=== PATIENT | female | born 1935 | race Asian ===

== ENCOUNTER 2019-06-20 14:37 | Emergency (ER) | payer MEDICARE, OTHER ==
[~2019-06-20] VITALS: Ht 152.4 cm; Wt 76.7 kg
[2019-06-20] MEDS ORDERED: COUMADIN1 MG ORAL (14:44)
[2019-06-20] MEDS ORDERED: AMLODIPINE BES2.5 MG ORAL (14:44)
[2019-06-20] MEDS ORDERED: FUROSEMIDE20 M1 ORAL (14:44)
[2019-06-20] MEDS ORDERED: Morphine Sulfate 2mg/ml Inj(IV/IM USE ONLY) IVP ONE (14:45)
[2019-06-20 14:50] VITALS: BP 136/63
--- NOTE | 2019-06-20 14:50 | NUR ---
ED Nurse Note: PT FROM HOME AND WAS BROUGHT IN BY RA 68 DUE TO GENERALIZED WEAKNESS. PER PT, SHE FELL IN A PARKING LOT YESTERDAY AND NOW C/O LOWER BACK AND BILATERAL LEG PAIN. ALSO NOTED MULTIPLE BRUISING ON UPPER EXTREMITIES AND BILATERAL BREASTS. PT IS CURRENTLY TAKING XARELTO FOR HER HEART. AAO X4, FOLLOWS COMMANDS AND UNABLE TO MOVE HER LEGS. NOTED BLE EDEMA.
--- NOTE | 2019-06-20 15:03 | Emergency Room Report ---
History of Present Illness General Chief Complaint: Generalized Weakness Source: Patient, EMS Present Illness HPI The patient fell yesterday. She had pain in her lower back and right hip. She was able to walk home but with severe pain. During the night she needed to go to the bathroom and slipped onto her floor and was unable to get up because of pain and weakness. She denies loss of consciousness. Patient is taking Coumadin for atrial fibrillation. She denies chest pain or shortness of breath. She feels thirsty at this time and has not had anything to drink or eat this morning. Non syncopal. But felt dizzy while sitting before the fall. No chest pain. Allergies: Coded Allergies: UNABLE TO ASSESS (Unverified , 06/20/19) Patient History Past Medical History: see triage record Past Surgical History: CABG Social History: Denies: smoking, alcohol use Social History Narrative Born in [place], retired from [employer] business, lives at home Reviewed Nursing Documentation: PMH: Agreed; PSxH: Agreed Nursing Documentation-PMH Past Medical History: No History, Except For Hx Cardiac Problems: Yes - aortic valve replacement Hx Hypertension: Yes Review of Systems All Other Systems: negative except mentioned in HPI Physical Exam Vital Signs Date Time Temp Pulse Resp B/P (MAP) Pulse Ox O2 Delivery O2 Flow Rate FiO2 06/20/19 14:40 97.9 96 16 164/57 (92) 99 Room Air Sp02 EP Interpretation: reviewed, normal General Appearance: well appearing, no apparent distress, GCS 15 Head: normocephalic Eyes: bilateral eye normal inspection, bilateral eye PERRL, bilateral eye EOMI ENT: dry mucus membranes Neck: supple Respiratory: lungs clear, normal breath sounds Cardiovascular #1: irregularly irregular, edema - Trace bilaterally Cardiovascular #2: 2+ radial (R) Gastrointestinal: normal inspection, normal bowel sounds, non tender, no mass, non-distended Musculoskeletal: no calf tenderness, tender - Lumbar area not point tenderness , other - Tenderness with pelvic compression and palpation of right hip however passive range of motion without tenderness Neurologic: alert, oriented x3 Psychiatric: mood/affect normal Skin: warm/dry, other - venous disease Medical Decision Making Diagnostic Impression: Primary Impression: Lumbar compression fracture Qualified Codes: S32.030A - Wedge compression fracture of third lumbar vertebra, initial encounter for closed fracture Additional Impressions: Fall Qualified Codes: W19.XXXA - Unspecified fall, initial encounter UTI (urinary tract infection) Qualified Codes: N39.0 - Urinary tract infection, site not specified Renal insufficiency Unable to ambulate Anticoagulated on Coumadin ER Course Patient presents with pelvic pain right hip pain and lower back pain after fall yesterday with weakness and unable to ambulate. Differential includes pelvic fracture, hip fracture, spine fracture and weakness with dehydration. She is at higher risk being on Coumadin for bleeding complications. Evaluation with EKG, chest x-ray and labs. CT of lumbar spine and pelvis ordered. IV hydration begun and analgesia ordered. Patient is a Tucker catheter. And placed on the registered nurse cardiac telemetry. EKG atrial fibrillation CT with L3 fracture with retropulsion. Due to fx and coumadin, patient transfer to [facility]. Accepted by Dr. Payne (to ICU). 5/5 strength LE and sensory intact bilaterally. 19:24. Laboratory Tests Test 06/20/19 14:55 White Blood Count 13.1 K/UL (4.8-10.8) H Red Blood Count 3.62 M/UL (4.20-5.40) L Hemoglobin 11.5 G/DL (12.0-16.0) L Hematocrit 36.3 % (37.0-47.0) L Mean Corpuscular Volume 100 FL (80-99) H Mean Corpuscular Hemoglobin 31.9 PG (27.0-31.0) H Mean Corpuscular Hemoglobin Concent 31.8 G/DL (32.0-36.0) L Red Cell Distribution Width 14.3 % (11.6-14.8) Platelet Count 143 K/UL (150-450) L Mean Platelet Volume 9.0 FL (6.5-10.1) Neutrophils (%) (Auto) % (45.0-75.0) Lymphocytes (%) (Auto) % (20.0-45.0) Monocytes (%) (Auto) % (1.0-10.0) Eosinophils (%) (Auto) % (0.0-3.0) Basophils (%) (Auto) % (0.0-2.0) Differential Total Cells Counted 100 Neutrophils % (Manual) 91 % (45-75) H Lymphocytes % (Manual) 5 % (20-45) L Monocytes % (Manual) 4 % (1-10) Eosinophils % (Manual) 0 % (0-3) Basophils % (Manual) 0 % (0-2) Band Neutrophils 0 % (0-8) Platelet Estimate Adequate Platelet Morphology Normal Anisocytosis 1+ Macrocytosis 1+ Prothrombin Time 24.8 SEC (9.30-11.50) H Prothrombin Time INR 2.4 (0.9-1.1) H Urine Color Yellow Urine Appearance Slightly cloudy Urine pH 5 (4.5-8.0) Urine Specific [place] 1.020 (1.005-1.035) Urine Protein 2+ (NEGATIVE) H Urine Glucose (UA) Negative (NEGATIVE) Urine Ketones 1+ (NEGATIVE) H Urine Blood 2+ (NEGATIVE) H Urine Nitrite Negative (NEGATIVE) Urine Bilirubin Negative (NEGATIVE) Urine Urobilinogen 1 MG/DL (0.0-1.0) H Urine Leukocyte Esterase 1+ (NEGATIVE) H Urine RBC 10-15 /HPF (0 - 2) H Urine WBC 5-10 /HPF (0 - 2) H Urine Squamous Epithelial Cells Moderate /LPF (NONE/OCC) H Urine Bacteria Moderate /HPF (NONE) H Sodium Level 145 MMOL/L (136-145) Potassium Level 3.4 MMOL/L (3.5-5.1) L Chloride Level 103 MMOL/L (98-107) Carbon Dioxide Level 28 MMOL/L (21-32) Anion Gap 14 mmol/L (5-15) Blood Urea Nitrogen 31 mg/dL (7-18) H Creatinine 1.6 MG/DL (0.55-1.30) H Estimate Glomerular Filtration Rate 30.6 mL/min (>60) Glucose Level 142 MG/DL (74-106) H Calcium Level 9.1 MG/DL (8.5-10.1) Total Bilirubin 1.6 MG/DL (0.2-1.0) H Direct Bilirubin 0.5 MG/DL (0.0-0.3) H Aspartate Amino Transferase (AST) 66 U/L (15-37) H Alanine Aminotransferase (ALT) 46 U/L (12-78) Alkaline Phosphatase 68 U/L (46-116) Total Protein 7.2 G/DL (6.4-8.2) Albumin 3.4 G/DL (3.4-5.0) Globulin 3.8 g/dL Albumin/Globulin Ratio 0.9 (1.0-2.7) L EKG Diagnostic Results Rate: normal Rhythm: other - Atrial fibrillation rate [address] Segments: no acute changes Rhythm Strip Diag. Results EP Interpretation: yes Rhythm: no PVC's, no ectopy, other - Atrial fibrillation Chest X-Ray Diagnostic Results Chest X-Ray Diagnostic Results : Chest X-Ray Ordered: Yes # of Views/Limited/Complete: 1 View Indication: Other EP Interpretation: Yes Interpretation: no effusion, no pneumothorax, other - CABG, cardiomegaly and poor inspiration CT/MRI/US Diagnostic Results CT/MRI/US Diagnostic Results #1: Imaging Test Ordered: Pelvis Impression no fx CT/MRI/US Diagnostic Results #2: Imaging Test Ordered: Lumbar spine Impression L3 fx with retropulsion Last Vital Signs Date Time Temp Pulse Resp B/P (MAP) Pulse Ox O2 Delivery O2 Flow Rate FiO2 06/20/19 20:00 98.4 94 18 119/61 98 Room Air Status: improved Disposition: XFER [facility] - higher level of care ALS Condition: Serious Will Caldera MD Jun 20, 2019 15:03
[2019-06-20 15:20] LABS: HEMATOCRIT 36.3 % (37.0-47.0); HEMOGLOBIN 11.5 G/DL (12.0-16.0); MEAN CORPUSCULAR VOLUME 100 FL (80-99); PLATELET COUNT 143 K/UL (150-450); RED BLOOD COUNT 3.62 M/UL (4.20-5.40); RED CELL DISTRIBUTION WIDTH 14.3 % (11.6-14.8); WHITE BLOOD COUNT 13.1 K/UL (4.8-10.8)
[2019-06-20 15:27] LABS: BILIRUBIN, URINE NEGATIVE (NEGATIVE); GLUCOSE, URINE (UA) NEGATIVE (NEGATIVE); KETONES,URINE 1+ (NEGATIVE); LEUKOCYTE ESTERASE ,URINE 1+ (NEGATIVE); NITRITE,URINE NEGATIVE (NEGATIVE); PH,URINE 5 (4.5-8.0); PROTEIN,URINE 2+ (NEGATIVE); UROBILINOGEN,URINE 1 MG/DL (0.0-1.0)
--- NOTE | 2019-06-20 15:30 | NUR ---
ED Nurse Note: PT TAKEN TO CT VIA [facility] IN STABLE CONDITION.
[2019-06-20 15:31] LABS: ANION GAP 14 mmol/L (5-15); BLOOD UREA NITROGEN 31 mg/dL (7-18); CALCIUM 9.1 MG/DL (8.5-10.1); CARBON DIOXIDE 28 MMOL/L (21-32); CHLORIDE 103 MMOL/L (98-107); CREATININE 1.6 MG/DL (0.55-1.30); POTASSIUM 3.4 MMOL/L (3.5-5.1); SODIUM 145 MMOL/L (136-145)
[2019-06-20 15:32] LABS: APPEARANCE,URINE SLIGHTLY CLOUDY; COLOR,URINE YELLOW; INR 2.4 (0.9-1.1)
--- NOTE | 2019-06-20 15:40 | NUR ---
ED Nurse Note: PT CAME BACK FROM CT AND STABLE.
[2019-06-20 15:47] LABS: ALANINE AMINOTRANSFERASE 46 U/L (12-78); ALBUMIN 3.4 G/DL (3.4-5.0); ALBUMIN/GLOBULIN RATIO 0.9 (1.0-2.7); ALKALINE PHOSPHATASE 68 U/L (46-116); ASPARTATE AMINO TRANSFERASE 66 U/L (15-37); BILIRUBIN,TOTAL 1.6 MG/DL (0.2-1.0)
[2019-06-20 15:58] LABS: BILIRUBIN,DIRECT 0.5 MG/DL (0.0-0.3)
[2019-06-20] MEDS ORDERED: cefTRIAXone 1 GM in NS 55 ML IVPB ONE (16:45)
[2019-06-20 17:00] VITALS: BP 112/74
--- NOTE | 2019-06-20 17:02 | Diagnostic Imaging Report ---
EXAM: CT Lumbar Spine Without Intravenous Contrast CLINICAL HISTORY: TRAUMA TECHNIQUE: Axial computed tomography images of the lumbar spine without intravenous contrast. CTDI is 24 mGy and DLP is 851.70 mGy-cm. One or more of the following dose reduction techniques were used: automated exposure control, adjustment of the mA and/or kV according to patient size, use of iterative reconstruction technique. COMPARISON: No relevant prior studies available. FINDINGS: Vertebrae: Age-indeterminate compression fracture of L3 with approximately 40% height loss and approximate 4 mm bony retropulsion, causing moderate central canal stenosis at this level. Abnormal lucency throughout the L3 vertebral body raise possibility of a pathologic fracture. Bilateral facet arthrosis at L4-5. Discs/spinal canal/neural foramina: Moderate to severe left-sided degenerative disc space loss at L4-5 with adjacent endplate sclerosis. Annular disc bulges at L3-L4 and L4-5. Soft tissues: Mild paraspinal soft tissue at L3 likely resenting small paraspinal hematoma. Vasculature: Partial visualization of an infrarenal saccular abdominal aortic aneurysm with diameter of at least 5.7 cm in length of 6.2 cm. IMPRESSION: 1. Age-indeterminate compression fracture of L3 with approximately 40% height loss and approximate 4 mm bony retropulsion, causing moderate central canal stenosis at this level. Abnormal lucency throughout the L3 vertebral body raise possibility of a pathologic fracture. 2. Mild paraspinal soft tissue at L3 likely resenting small paraspinal hematoma. 3. Partial visualization of an infrarenal saccular abdominal aortic aneurysm with diameter of at least 5.7 cm in length of 6.2 cm. 4. Moderate to severe left-sided degenerative disc space loss at L4-5 with adjacent endplate sclerosis. 5. Annular disc bulges at L3-L4 and L4-5. MRI is more sensitive for the evaluation of disc disease.
--- NOTE | 2019-06-20 17:05 | Diagnostic Imaging Report ---
EXAM: XR Chest, 1 View CLINICAL HISTORY: TRAUMA TECHNIQUE: Frontal view of the chest. COMPARISON: No relevant prior studies available. FINDINGS: Lungs: Pulmonary vascular congestion with mild perihilar pulmonary edema. Subsegmental atelectasis versus infiltrate in the medial left lung base. Pleural space: Unremarkable. The costophrenic angles are sharp. No visible pneumothorax. Heart: Cardiomegaly. Mediastinum: Widened superior mediastinum. Bones/joints: Status post median sternotomy. Tubes, lines and devices: Telemetry leads overlie the thorax. Other findings: Likely enlarged thyroid. IMPRESSION: 1. Widened superior mediastinum. If there is clinical concern for mediastinal vascular injury, CT of the thorax should be considered. 2. Pulmonary vascular congestion with mild perihilar pulmonary edema. 3. Subsegmental atelectasis versus infiltrate in the medial left lung base. 4. Cardiomegaly. 5. Likely enlarged thyroid.
--- NOTE | 2019-06-20 17:09 | Diagnostic Imaging Report ---
EXAM: CT Pelvis Without Intravenous Contrast CLINICAL HISTORY: TRAUMA TECHNIQUE: Axial computed tomography images of the pelvis without intravenous contrast. Sagittal and coronal reformatted images were created and reviewed. CTDI is 24 mGy and DLP is 851.70 mGy-cm. One or more of the following dose reduction techniques were used: automated exposure control, adjustment of the mA and/or kV according to patient size, use of iterative reconstruction technique. COMPARISON: Lumbar spine CT obtained the same date FINDINGS: Bowel: Unremarkable. No obstruction. No mucosal thickening. Appendix: No findings to suggest acute appendicitis. Intraperitoneal space: Unremarkable. No free air. No significant fluid collection. Bladder: Tucker catheter balloon and tip within the decompressed urinary bladder. No stones. Reproductive: Unremarkable as visualized. Bones/joints: No visible fracture or dislocation in the hips or pelvis. Moderate degenerative narrowing in bilateral hip joints. Degenerative changes in the visualized lower lumbosacral spine. Soft tissues: Unremarkable. Vasculature: Unremarkable. No lower abdominal aortic aneurysm. Lymph nodes: Unremarkable. No enlarged lymph nodes. IMPRESSION: 1. No visible fracture or dislocation in the hips or pelvis. 2. Moderate degenerative narrowing in bilateral hip joints.
[2019-06-20 18:54] VITALS: BP 116/57
--- NOTE | 2019-06-20 19:03 | NUR ---
ED Nurse Note: REPORT GIVEN TO ANATOLIY DELCID OF [facility].
--- NOTE | 2019-06-20 19:08 | NUR ---
HAND-OFF: Report given to DHRUV AUGUSTINE RN.
[2019-06-20 20:00] VITALS: BP 119/61
--- NOTE | 2019-06-20 20:00 | NUR ---
TRANSFER TO FLOOR: Patient transferred to [facility] bed [id number] via [facility] via gurney in stable condition as ordered, per md . Report given to Tejas DELCID. Belongings sent with patient
== END 2019-06-20 20:00 | disposition short-term general hospital (02) ==
LOC: EDBD 14:37 → EMR 14:55
DX: S32.030A Wedge compression fracture of third lumbar vertebra, initial encounter for closed fracture (principal); N39.0 Urinary tract infection, site not specified; N28.9 Disorder of kidney and ureter, unspecified; Z79.01 Long term (current) use of anticoagulants; I48.91 Unspecified atrial fibrillation; I10 Essential (primary) hypertension; Z95.1 Presence of aortocoronary bypass graft; W01.0XXA Fall on same level from slipping, tripping and stumbling without subsequent striking against object, initial encounter; Y92.9 Unspecified place or not applicable; I51.7 Cardiomegaly
CPT/HCPCS: 36415; 71045; 72131; 72192; 80053; 81001; 82248; 85007; 85025; 85610; 86850; 86900; 86901; 87086; 93005; 96361; 96365; 96375; 99284; J0696; J2270; J2405; J7030